=== PATIENT | male | born 1945 | race Caucasian/White ===

== ENCOUNTER 2016-07-07 13:04 | Emergency (ER) | payer MEDICARE ==
[~2016-07-07 13:04] MED LIST: ALBUTEROL 0.083% INH; ALBUTEROL17 GM INH; BROMFED DM PO; IRON TABS; PREDNISONE PO
[2016-08-30] MEDS ORDERED: HYDROCHLOROTHIA25 MG PO (10:40)
[2016-08-30] MEDS ORDERED: LISINOPRIL10 MG PO (10:40)
[2016-08-30] MEDS ORDERED: FERROUS SULFAT325 MG PO (10:40)
[2016-08-30] MEDS ORDERED: METOPROLOL PO (10:41)
[2016-08-30] MEDS ORDERED: NASOCORT INH (10:42)
[2016-08-30] MEDS ORDERED: ALLEGRA30 MG/5 ML PO (10:43)
[2016-08-30] MEDS ORDERED: ALLEGRA (10:44)
[2016-08-30] MEDS ORDERED: PROAIR HFA8.5 GM INH (11:35)
[2016-08-30] MEDS ORDERED: SYMBICORT INH (16:26)
== END 2016-07-07 13:35 | disposition home or self-care (01) ==
LOC: SED 13:04
DX: I10 Essential (primary) hypertension (principal); J44.1 Chronic obstructive pulmonary disease with (acute) exacerbation; Z79.899 Other long term (current) drug therapy
CPT/HCPCS: 94640; 99283

== ENCOUNTER → 2016-08-07 | Outpatient (CLI) | payer MEDICARE ==
[~2016-08-07] MED LIST changes: +ALLEGRA; +ALLEGRA30 MG/5 ML PO; +FERROUS SULFAT325 MG PO; +HYDROCHLOROTHIA25 MG PO; +LISINOPRIL10 MG PO; +METOPROLOL PO; +NASOCORT INH; +PROAIR HFA8.5 GM INH; +SYMBICORT INH
--- NOTE | ~2016-08-07 | HM ---
Unit #: [id number] #: [id number] Patient: JOHANNE FERNANDES [id number] [address] [address] [id number] O MR#: [id number] NAME: JOHANNE FERNANDES. : 1945 SEX: M STUDY DATE/TIME: 08/10/2016 UNIT: [facility] ROOM: STUDY DESCRIPTION: Holter monitor Attending Physician: Jeferson Ambrosio M.D. Referring Physician: Jeferson Ambrosio M.D. Primary Care Physician: Jeferson Ambrosio M.D. CARDIOLOGY REPORT EXAM Holter monitor. FINDINGS 1. The underlying rhythm is normal sinus. Slowest recorded heart rate is 56 beats per minute and a maximal recorded heart rate of 133 beats per minute. 2. Frequent premature ventricular contractions are noted. There were 7,723 isolated PVCs and 538 premature ventricular couplets. PVCs arise from at least two different foci. 3. At 3:03 p.m. on August, there was a six beat run of ventricular tachycardia, monomorphic in type at a rate of 180 beats per minute spontaneously converting back to normal sinus rhythm. 4. At 3:07 a.m., there is a four beat run of accelerated idioventricular rhythm at a rate of 100 beats per minute spontaneously converting to normal sinus rhythm. 5. There were rare isolated premature atrial contractions with 92 premature PACs. Four premature atrial couplets are recorded. 6. Supraventricular tachycardia reported by the computer is not documented. 7. There is no AV [place] block, sinus arrest or sinus pause. 8. The patient did not maintain any symptom or activity diary. IMPRESSION 1. Abnormal 24-hour ambulatory monitoring shows normal sinus rhythm. 2. Very frequent PVCs. 3. Nine runs of ventricular tachycardia, the longest run of six beats at a rate of 150 beats per minute. 4. No significant slowing of the heart rate. Dictated by... Jose Alejandro Mckeon M.D. Angel Luis TD: 08/11/2016 06:36 JOB #: [id number] Unit #: [id number] #: [id number] Patient: JOHANNE FERNANDES CARDIOLOGY REPORT Page 1 of 1 X Jose Alejandro Mckeon MD HOLTER MONITOR REPORT
== END | disposition home or self-care (01) ==
LOC: CEKG 08:33
DX: I49.9 Cardiac arrhythmia, unspecified (principal)
CPT/HCPCS: 93225; 93226

== ENCOUNTER → 2016-08-30 | Outpatient (CLI) | payer MEDICARE ==
--- NOTE | ~2016-08-30 | ST ---
Unit #: [id number] #: [id number] Patient: JOHANNE FERNANDES [id number] [facility]. [address] [place], [place] [address] [id number] O MR#: [id number] NAME: JOHANNE FERNANDES. : 1945 SEX: M STUDY DATE/TIME: 08/30/2016 UNIT: [facility] ROOM: STUDY DESCRIPTION: Stress test Attending Physician: Jeferson Ambrosio M.D. Referring Physician: Jeferson Ambrosio M.D. Primary Care Physician: Jeferson Ambrosio M.D. CARDIOLOGY REPORT EXAM Exercise Cardiolite stress test. FINDINGS Baseline EKG: Normal sinus rhythm with ventricular rate 93 beats per minute, left atrial abnormality, probable Q waves in V1 and septal leads, poor R wave progression, nonspecific ST-T wave abnormalities in inferior leads. The patient walked on the treadmill for 3 minutes and 33 seconds achieving a workload of 4.60 METs. Maximal heart rate response was 148 beats per minute with a maximum blood pressure response of 160/100. The patient had no complaints of chest pain, palpitations or dizziness. The patient had increased shortness of breath that precipitated to stop the test early. The patient had no complaints of dizziness, palpitations. The patient has generalized weakness, shortness of breath and fatigue, resolved in recovery phase. The patient denied any chest pain. EKG during the test was equivocal to baseline. No acute ischemic changes. It was noted that there was an occasional premature atrial contraction and occasional premature ventricular contraction. It is noted that the patient's blood pressure decreased down to 152/98 at the end of recovery phase and, also, patient had not taken his blood pressure medication this morning. Cardiolite was injected at maximum target heart rate. Radionuclide test pending. Please correlate with nuclear images. Dictated by... Maryann Duarte A.P.R.N. for Anurag Velasquez TD: 08/30/2016 08:43 JOB #: [id number] Unit #: [id number] #: [id number] Patient: JOHANNE FERNANDES CARDIOLOGY REPORT Page 1 of 1 X Maryann Duarte APRN CARDIOLOGY REPORT
--- NOTE | ~2016-08-30 | TH ---
Unit #: [id number] #: [id number] Patient: JOHANNE FERNANDES [id number] [facility] [[email or web address]]. [address] [place], [place] [address] [id number] O MR#: [id number] NAME: JOHANNE FERNANDES. : 1945 SEX: M STUDY DATE/TIME: 08/30/2016 UNIT: CN ROOM: STUDY DESCRIPTION: Attending Physician: Jeferson Ambrosio M.D. Referring Physician: Jeferson Ambrosio M.D. Primary Care Physician: Jeferson Ambrosio M.D. CARDIOLOGY REPORT EXAM Exercise Cardiolite stress test, nuclear portion. PROCEDURE Using technetium 99m labeled Cardiolite, rest and stress SPECT images were obtained. Multiple SPECT images were obtained in various views including horizontal and vertical long axis and short axis views of the left ventricle. Images were obtained by gated SPECT method. The patient was administered 12 mCi of Cardiolite at rest. The patient was administered 35.5 mCi of Cardiolite at peak exercise. Total exercise time is 3 minutes and 33 seconds. On the stress images, there is an extremely large area of severe decreased isotope activity involving the entire inferior and the inferolateral wall of the left ventricle. In addition, there is a small area of mild decreased isotope activity in the anteroseptal wall. The rest images show an extremely large area of severe decreased isotope activity involving the inferior and the inferolateral wall. Comparing rest and stress images, there is a large area of fixed defect involving the entire inferior and the inferolateral wall with significant amount of esvin-infarct ischemia. There is also stress-induced ischemia involving the anteroseptal wall. The left ventricular ejection fraction is calculated to be 46% which may be an over estimation. There is akinesis involving the inferior wall and the inferolateral wall. The left ventricular cavity is moderately dilated both at rest and post stress. CONCLUSION 1. Suspicion for large myocardial infarction involving the entire inferior wall/inferolateral wall with significant amount of esvin-infarct ischemia. 2. In addition, there is a small area of stress-induced ischemia involving the anteroseptal wall. 3. The left ventricular ejection fraction is calculated to be 46% which may be an over estimation. 4. There is akinesis involving the inferior and the inferolateral wall. 5. The left ventricular cavity is moderately dilated both at rest and post stress. 6. Suspicion for severe ischemia cardiomyopathy with a large inferior/inferolateral myocardial infarction with significant esvin-infarct ischemia and also anteroseptal ischemia. 7. Highly abnormal stress test. Patient will be hospitalized for further evaluation. Unit #: [id number] #: [id number] Patient: JOHANNE FERNANDES Dictated by... Anurag Velasquez TD: 08/30/2016 09:19 JOB #: [id number] CARDIOLOGY REPORT Page 1 of 1 X Evonne Glass MD <ELECTRONICALLY SIGNED> 11/25/16 1429 CARDIOLOGY REPORT
--- NOTE | ~2016-08-30 | DS ---
Unit #: [id number] #: [id number] Patient: JOHANNE FERNANDES [id number] [facility] [address] [facility]. [place], [place] [address] [id number] I MR#: [id number] NAME: JOHANNE FERNANDES. ROOM: [id number] Age: 71 Sex: M Admission Date: 08/30/2016 : 1945 Discharge Date: 08/30/2016 Attending Physician: Jose Alejandro Mckeon M.D. Referring Physician: Jeferson Ambrosio M.D. Primary Care Physician: Jeferson Ambrosio M.D. DISCHARGE SUMMARY SHORT STAY SUMMARY HISTORY OF PRESENT ILLNESS This is a 71-year-old white male who was sent by Dr. Mckeon to [facility] for having an abnormal EKG. Patient has a history of hypertension, hyperlipidemia, and COPD; however, he has been a lifelong nonsmoker. He went to his primary care physician, Dr. Ambrosio, originally because he has been having a lot of fatigue since he retired a few months back. Dr. Ambrosio evaluated his EKG which showed a previous inferior infarct, and he sent him to Dr. Mckeon because of the abnormal EKG. The patient denied having any chest pain or pain in his neck or bilateral jaw, shoulders, arms, or elbows. He denied any palpitations and no dizziness, presyncope, or syncope. He does have shortness of breath with a lot of exertion but not minimal exertion. He denies paroxysmal nocturnal dyspnea and orthopnea. Dr. Mckeon, after examination and review, needed ischemic heart disease workup. He ordered an exercise Cardiolite stress test. He did a 2D echo in the office that showed mild aortic regurgitation, moderate to severe mitral regurgitation, and an estimated EF of 55% suggestive of impaired LV relaxation. Patient performed the exercise Cardiolite stress test but only could walk three minutes and 33 seconds. He thought he had occasional PACs and PVCs. He had very poor exercise tolerance; however, it was enough to complete the test. The test results revealed a suspicion for large myocardial infarction involving the entire inferior wall-inferolateral wall with significant amount of esvin-infarct ischemia. There was also a small area of stress-induced ischemia involving anteroseptal wall. His ejection fraction was calculated to be about 46%, and there was some akinesis in the inferior and inferolateral wall. The patient was informed of the findings on this test and was advised for a heart catheterization to further evaluate for ischemic heart disease. Patient was agreeable to stay and had the heart catheterization by Dr. Mckeon. Patient got a dose of metoprolol and lisinopril before the cath due to having some hypertension during the stress test. His cardiac cath results showed LV systolic function of 55%, moderate mitral regurgitation, 90% stenosis at the ostium of the first diagonal branch of the LAD, severe three-vessel coronary artery ectasia without significant stenosis, and moderate to severe dilatation of the ascending aorta with showing only a trace of aortic regurgitation. Patient was recommended for medical management by aggressively lowering his cholesterol and to manage his blood pressure. Because of the severe ectasia and sluggish flow to the coronary arteries, the patient was started on Plavix 75 mg daily and Unit #: [id number] #: [id number] Patient: JOHANNE FERNANDES aspirin [address] of the thoracic aorta will be performed at a later date to measure the ascending aortic size. Patient tolerated the procedure without any difficulties. He was discharged home later that evening without any complaints of chest pain, palpitations, dizziness, or shortness of air. Dr. Mckeon performed the procedure through the right radial artery. After recovery was completed, his right radial pulse is strong without any oozing, hematoma, or thrill. Patient was discharged home with postop instructions. Dr. Mckeon did recommend to increase his metoprolol from 25 twice daily to 50 mg p.o. twice daily and lisinopril 20 mg p.o. at bedtime instead of 10 mg. Also, as mentioned, he is on dual antiplatelet therapy with aspirin and Plavix. REVIEW OF SYSTEMS CONSTITUTIONAL: Denies any fever or chills. No recent weight gain or weight loss. HEENT: Complained of headache. No visual or hearing changes. NECK: No lymphadenopathy or thyromegaly. CARDIOVASCULAR: Complained of some chest pain prior and chest pressure. Denied palpitations and no increased lower extremity edema. GASTROINTESTINAL: No nausea, vomiting, diarrhea, or abdominal pain. NEUROLOGIC: No focal weakness. PHYSICAL EXAMINATION AT TIME OF ADMISSION GENERAL: Patient is awake, alert, and oriented. VITAL SIGNS: Blood pressure was 136/92, heart rate 80, respirations 18, and he is afebrile. NECK: Trachea midline. No thyromegaly or lymphadenopathy. Normal carotid upstrokes. HEART: S1 and S2, regular rate and rhythm. LUNGS: Bilaterally clear throughout but very slightly diminished. ABDOMEN: Soft and nontender. Positive bowel sounds present. EXTREMITIES: Pedal pulses are palpable. No pedal edema. DIAGNOSTIC STUDIES LATEST LABORATORY: Glucose is 100, BUN 9, creatinine 0.8, eGFR 98.5, sodium 136, potassium 3.6, chloride 102, CO2 of 23, calcium 9.4, total protein 7.6, albumin 4.6, AST 25, ALT 20, and alkaline phosphatase is 75. INR is 1. WBC 9.4, hemoglobin 13.8, hematocrit 43.4, and platelets are 364,000. CARDIOLOGY: EKG shows normal sinus rhythm with ventricular rate 92 beats per minute and inferior infarct age undetermined. IMPRESSION 1. Abnormal stress test which is highly suspicious for significant coronary artery disease with a large inferior and inferolateral myocardial infarction with significant esvin-infarct ischemia and shows an anteroseptal myocardial infarction with an left ventricular ejection fraction of 46%. 2. Patient had a cardiac catheterization by Dr. Mckeon that revealed normal left ventricular systolic function and ejection fraction of 55% with moderate mitral regurgitation, 90% stenosis at the ostium of the first diagonal branch of the left anterior descending, severe three-vessel coronary artery ectasia without significant stenosis, and a moderate to severe dilatation of ascending aorta. 3. Hypertension. 4. Hyperlipidemia. Unit #: [id number] #: [id number] Patient: JOHANNE FERNANDES 5. (1) ventricular arrhythmias. 6. A two-dimensional echocardiogram done on August 14, 2016, shows an left ventricular ejection fraction of 55% with impaired left ventricular relaxation, mild aortic regurgitation, and moderate to severe mitral regurgitation. 7. Mild obesity. 8. Chronic obstructive pulmonary disease/nonsmoker. PLAN 1. After the cardiac catheterization, Dr. Mckeon had a long discussion with the patient and the family. He started the patient on Lipitor 40 mg for aggressive lowering of his cholesterol. The dose of his metoprolol tartrate has been increased from 50 mg daily to 50 mg p.o. twice daily. Also, the dose of lisinopril has been increased from 10 mg at bedtime to 20 mg at bedtime. 2. Because of his severe ectasia and sluggish flow to the coronary arteries, patient was started on Plavix 75 mg daily and aspirin [address] angio of the thoracic aorta will be performed at a later date to measure the ascending aortic size. It is noted that because the coronary artery stenosis is localized to the first diagonal branch of the LAD and the patient is free of angina pectoris, no coronary intervention is recommended at this time. DISCHARGE MEDICATIONS 1. Symbicort 160/4.5 mcg 1 puff inhalation twice daily. 2. ProAir inhalation p.r.n. 3. Ferrous sulfate 1 tablet p.o. twice daily. 4. Lisinopril increase to 20 mg instead of 10 mg p.o. at bedtime. 5. Hydrochlorothiazide 25 mg p.o. daily. 6. Metoprolol increase to 50 mg p.o. twice daily instead of 25 mg p.o. twice daily. 7. Nasacort inhalation daily. 8. [place] p.r.n. for allergies. 9. Patient will be given a prescription for Nitrostat p.r.n. for chest pain. ALLERGIES No known drug allergies. DISCHARGE INSTRUCTIONS 1. At this point, patient will be treated medically for his coronary artery disease. He has been started on Plavix and aspirin dual antiplatelet therapy. 2. The patient will have a CT of the chest to evaluate his ascending aortic aneurysm. 3. On exam, there were no signs or symptoms of acute congestive heart failure. 4. Encourage healthy lifestyle changes and modifications. 5. Patient will follow up with Dr. Mckeon in a few weeks. An appointment will be made. 6. Patient will follow up with Dr. Ambrosio in two to three weeks. 7. His right radial site is without oozing, hematoma, or thrill. Information provided to the patient postoperatively for watching for signs, symptoms, or problems with the cath site. 8. Patient has verbalized understanding, and he will come to [facility] if he has any further chest discomfort. 9. Unit #: [id number] #: [id number] Patient: JOHANNE FERNANDES 1. Dictated by... Ray ToddPRichardRRichardNRichard for Jose AlejandroAnurag Arenas TD: 09/06/2016 14:36 JOB #: [id number] DISCHARGE SUMMARY Page 1 of 1 X Maryann Duarte APRN DISCHARGE SUMMARY
--- NOTE | ~2016-08-30 | EKG ---
PATIENT: JOHANNE FERNANDES UNIT #: [id number] Ventricular Rate: 92 BPM Atrial Rate: 92 BPM P-R Interval: 160 ms QRS Duration: 94 ms Q-T Interval: 366 ms QTC Calculation(Bezet): 452 ms Calculated R [place]: -10 degrees Diagnosis Line: Normal sinus rhythm Diagnosis Line: Inferior infarct , age undetermined Diagnosis Line: Abnormal ECG Diagnosis Line: No previous ECGs available Diagnosis Line: Confirmed by CLARA MIGUEL MD ([id number]) on 08/30/2016 Diagnosis Line: 10:44:12 PM INTERPRETING MD: MYRIAM CRYSTAL
[2016-08-30 10:22] LABS: HEMATOCRIT 43.4 % (38.0-50.0); HEMOGLOBIN 13.8 gm/dL (13.0-16.0); MEAN CELL VOLUME 76.2 FL (83-96); MEAN CORPUSCULAR HEMOGLOBIN 24.2 PG (28-34); MEAN CORPUSCULAR HGB CONC 31.8 g/dL (30-36); MEAN PLATELET VOLUME 8.1 FL (6.5-11.5); RED BLOOD COUNT 5.7 X10e (3.90-5.60); WHITE BLOOD COUNT 9.4 X10e3 (4.0-10.5)
[2016-08-30 10:27] LABS: PROTHROMBIN TIME (PATIENT) 10.7 SECONDS (9.6-11.5)
[2016-08-30 10:41] LABS: ALBUMIN SERUM 4.6 g/dL (3.5-5.0); BUN/CREATININE RATIO 11.25; CALCIUM SERUM 9.4 mg/dL (8.4-10.2); CREATININE SERUM 0.8 mg/dL (0.6-1.4); GLOM FILT RATE Estimated 90.5 mL/min (>60); POTASSIUM 3.6 mmol/L (3.5-5.1); PROTEIN TOTAL SERUM 7.6 g/dL (6.0-8.3)
== END | disposition home or self-care (01) ==
LOC: CNUC 05:46
PROVIDERS: Internal Medicine Cardiovascular Disease
DX: I49.9 Cardiac arrhythmia, unspecified (principal); R06.02 Shortness of breath; I10 Essential (primary) hypertension; I47.2 Ventricular tachycardia; R94.31 Abnormal electrocardiogram [ECG] [EKG]; R94.39 Abnormal result of other cardiovascular function study
CPT/HCPCS: 78452; 80053; 85027; 85610; 85730; 93005; 93017; A9500; C1769; C1887; C1894; J1644; J2250; J3010

== ENCOUNTER → 2016-09-21 | Outpatient (CLI) | payer MEDICARE ==
--- NOTE | ~2016-09-21 | CT15 ---
[facility] A Service of [facility] RADIOLOGY TEXT RESULTS PATIENT: JOHANNE FERNANDES [facility] [id number] : [birth year] UNIT #: [id number] AGE: [address]: Jose Alejandro Mckeon MD SEX: M ORDER DR: [id number] [facility] [address] [place], [place] [address] [id number] O MR#: [id number] [employer] #: [id number] NAME: JOHANNE FERNANDES. : 1945 SEX: M STUDY DATE/TIME: 09/21/2016 9:56 UNIT: [facility] ROOM: STUDY DESCRIPTION: CT Angio Chest Attending Physician: Jose Alejandro Mckeon M.D. Referring Physician: Jose Alejandro Mckeon M.D. Ordering Physician: Jose Alejandro Mckeon M.D. Primary Care Physician: Jeferson Ambrosio M.D. MEDICAL IMAGING REPORT This report is preliminary unless electronic signature is present EXAM CT angiogram of the chest. INDICATIONS Ascending aortic aneurysm. TECHNIQUE CT angiogram of the chest was performed following administration of IV contrast. Coronal, sagittal and 3-D reformatted images were obtained. This CT exam was performed with one or more of the following radiation dose reduction techniques: automatic exposure control, adjustment of mA and/or kV according to patient size, and iterative reconstruction. COMPARISON No comparison studies are available. FINDINGS The aortic root is dilated, measuring about 4.3 cm. The ascending aorta is aneurysmal, measuring about 4.7 cm in greatest dimension. The descending thoracic aorta is within normal limits. There is tortuosity of the infrarenal abdominal aorta with what appears to be aneurysmal dilatation, measuring roughly the 3 cm; however, this is incompletely visualized. Also noted in the upper abdomen is moderate narrowing of the proximal superior mesenteric artery due to atheromatous plaque. There is a large hiatal hernia. There is no evidence for lymphadenopathy or pleural effusion. There is scarring/atelectasis within the inferior right lower lobe. Limited imaging of the upper abdomen demonstrates cholelithiasis. Tiny adrenal gland nodules bilaterally are probably adenomas. The bone windows are unremarkable. IMPRESSION 1. Dilated aortic root measuring 4.3 cm. [facility] A Service of [facility] RADIOLOGY TEXT RESULTS PATIENT: JOHANNE FERNANDES LOCATION: [facility] : 47 UNIT #: [id number] AGE: [address]: Jose Alejandro Mckeon MD SEX: M ORDER DR: 2. Aneurysmal dilatation of the ascending aorta measuring 4.7 cm. 3. The abdominal aorta is not completely visualized; however, it is tortuous and appears aneurysmal, measuring 3 cm in greatest dimension on the study, although I would recommend a CTA of the abdomen and pelvis to evaluate the abdominal aorta more completely. 4. 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 Dictated by... Bill Borjas M.D. THIS IS AN ELECTRONICALLY VERIFIED REPORT Bill Borjas M.D. at 09/22/2016 7:35 AM WILLIE/ki TD: 09/21/2016 13:47 JOB #: [id number] MEDICAL IMAGING REPORT Page 1 of 1 COPY
== END | disposition home or self-care (01) ==
LOC: CCAT 09:02
DX: I71.2 Thoracic aortic aneurysm, without rupture (principal); K55.1 Chronic vascular disorders of intestine
CPT/HCPCS: 71275; Q9967

== ENCOUNTER → 2016-10-17 | Outpatient (CLI) | payer MEDICARE ==
--- NOTE | ~2016-10-17 | CT14 ---
[facility] A Service of [facility] RADIOLOGY TEXT RESULTS PATIENT: JOHANNE FERNANDES LOCATION: [facility] : 47 UNIT #: [id number] AGE: [address]: Jose Alejandro Mckeon MD SEX: M ORDER DR: [id number] [facility] [address] [place], [place] [address] [id number] O MR#: [id number] [facility] #: [id number] NAME: JOHANNE FERNANDES. : 1945 SEX: M STUDY DATE/TIME: 10/17/2016 10:41 UNIT: [facility] ROOM: STUDY DESCRIPTION: CT Angio Abdomen and Pelvis Attending Physician: Jose Alejandro Mckeon M.D. Referring Physician: Jose Alejandro Mckeon M.D. Ordering Physician: Jose Alejandro Mckeon M.D. Primary Care Physician: Jeferson Ambrosio M.D. MEDICAL IMAGING REPORT This report is preliminary unless electronic signature is present EXAM CT angiogram of the abdomen and pelvis INDICATION Abdominal aortic aneurysm. TECHNIQUE CT angiogram of the abdomen and pelvis was performed following the administration of IV contrast. Coronal, sagittal and 3-D reformatted images were obtained. This CT examination was performed with one or more of the following radiation dose reduction techniques: automatic exposure control, adjustment of mA and/or kV according to patient size, and iterative reconstruction. Correlation is made with chest CT 09/21/2016. FINDINGS CT ANGIOGRAM: There is a multilobar infrarenal abdominal aortic aneurysm. It measures approximately 3.6 cm in greatest AP dimension. It is angulated toward the right. There is an approximately 2.5 cm neck between the top of the aneurysm and the caudal most renal artery. There is 1.9 cm aneurysmal dilatation of the most proximal aspect of the right common iliac artery. There are 2 left renal arteries and 2 right renal arteries all of which are patent. These all originate above the aneurysm. The remaining visceral arteries are also widely patent. CT OF THE ABDOMEN: There is a large hiatal hernia. The liver is unremarkable. Cholelithiasis. The spleen is unremarkable. The kidneys are unremarkable. There are bilateral adrenal nodules which are likely adenomas. These are both small. The pancreas is unremarkable. PELVIS: Prostatomegaly. Bilateral fat-containing inguinal hernias. Diverticulosis. Remainder of the pelvis is unremarkable. Bone windows [facility] A Service of [facility] RADIOLOGY TEXT RESULTS PATIENT: JOHANNE FERNANDES LOCATION: [facility] : 47 UNIT #: [id number] AGE: [address]: Jose Alejandro Mckeon MD SEX: M ORDER DR: demonstrate a bone island in L4. IMPRESSION 1. Infrarenal abdominal aortic aneurysm as described above. It measures about 3.6 cm in greatest AP dimension. 2. 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 Dictated by... Bill Borjas M.D. THIS IS AN ELECTRONICALLY VERIFIED REPORT Bill Borjas M.D. at 10/19/2016 7:01 AM WILLIE/deya TD: 10/18/2016 09:03 JOB #: [id number] MEDICAL IMAGING REPORT Page 1 of 1 COPY
[2016-10-17 09:54] LABS: CREATININE SERUM 0.7 mg/dL (0.6-1.4); GLOM FILT RATE Estimated 95.7 mL/min (>60)
== END | disposition home or self-care (01) ==
LOC: CCAT 08:52
PROVIDERS: Internal Medicine Cardiovascular Disease
DX: I71.2 Thoracic aortic aneurysm, without rupture (principal); I72.3 Aneurysm of iliac artery
CPT/HCPCS: 36415; 74174; 82565; 84520; Q9967